=== PATIENT | female | born 1990 | race Caucasian/White ===

== ENCOUNTER 2017-12-12 14:19 | Emergency (ER) | payer OTHER ==
[2017-12-12 14:25] VITALS: BP 127/81
--- NOTE | 2017-12-12 14:33 | ED Physician Documentation ---
History of Present Illness - Stated complaint Stated Complaint: RING STUCK ON FINGER - Chief complaint Chief Complaint: General - History obtained from History obtained from: Patient - History of Present Illness Timing: Yesterday Pain level max: 0 Pain level now: 0 Improved by: nothing Worsened by: nothing - Additonal information Additional information: Ring stuck on L ring finger since yesterday. Tried to remove with dental floss today. Review of Systems Skin: denies: Rash Neurologic: denies: Focal weakness, Numbness PD PAST MEDICAL HISTORY - Past Medical History Past Medical History: No - Past Surgical History Past Surgical History: No - Present Medications Home Medications: Ambulatory Orders Medication Instructions Recorded Confirmed Antihistamine 12/12/17 - Allergies Allergies/Adverse Reactions: Allergies Allergy/AdvReac Type Severity Reaction Status Date / Time No Known Drug Allergies Allergy Verified 07/11/16 13:06 - Social History Does the pt smoke?: No Smoking Status: Never smoker Does the pt drink ETOH?: No Does the pt have substance abuse?: No - Immunizations Immunizations are current?: No Immunizations: TDAP >10years/unknown PD ED PE NORMAL - Vitals Vital signs reviewed: Yes - General General: Alert and oriented X 3 - HEENT HEENT: Moist mucous membranes - Neck Neck: Supple, no meningeal sign - Extremities Extremities: Other (L ring finger with large silver ring stuck on finger. ) - Neuro Neuro: Alert and oriented X 3 Results - Vitals Vitals: Vital Signs - 24 hr 12/12/17 14:21 Temperature 36.4 C L Heart Rate 77 Respiratory 16 Rate Blood Pressure 127/81 H O2 Saturation 100 Oxygen O2 Source Room air PD MEDICAL DECISION MAKING - ED course Complexity details: considered differential, d/w patient ED course: Ring was removed from the left ring finger using a tourniquet wrapped distally to proximally, edema resolved and the ring was slid off. Neurovascularly intact. Patient tolerated well. This document was made in part using voice recognition software. While efforts are made to proofread this document, sound alike and grammatical errors may occur. Departure - Departure Clinical Impression: Tight ring on finger Condition: Good Follow-Up: your,doctor as needed. [Other] Comments: Return if you worsen.
== END 2017-12-12 14:40 | disposition home or self-care (01) ==
LOC: ED 14:19
DX: S60.445A External constriction of left ring finger, initial encounter (principal); W49.04XA Ring or other jewelry causing external constriction, initial encounter
CPT/HCPCS: 99282

== ENCOUNTER 2018-04-12 16:56 | Emergency (ER) | payer OTHER ==
[2018-04-12 17:22] VITALS: BP 109/71
--- NOTE | 2018-04-12 18:11 | XRAY Report ---
Reason: right ankle pain Procedure Date: 04/12/2018 Accession Number: [id number] / [id number] Procedure: XR - Ankle 3 View RT CPT Code: FULL RESULT: EXAM: RIGHT ANKLE RADIOGRAPHY EXAM DATE: 04/12/2018 05:51 PM. CLINICAL HISTORY: Ankle pain and swelling. COMPARISON: None. TECHNIQUE: 3 views. FINDINGS: Bones: Normal. No fractures or bone lesions. Joints: Normal. No effusion. No subluxations. The ankle mortise is normally aligned. Soft Tissues: There is lateral ankle soft tissue swelling. IMPRESSION: Soft tissue swelling without fracture. [facility]
== END 2018-04-12 18:39 | disposition left against medical advice (07) ==
LOC: ED 16:56
DX: Z53.21 Procedure and treatment not carried out due to patient leaving prior to being seen by health care provider (principal)